=== PATIENT | female | born 1995 | race Caucasian/White ===

== ENCOUNTER → 2017-05-22 09:51 | Outpatient (CLI) | payer BC, SELFPAY ==
--- NOTE | 2017-05-22 09:55 | US_ITS ---
STUDY: THYROID ULTRASOUND REASON FOR EXAM: Female, 21 years old. Thyroid nodule. TECHNIQUE: Ultrasound evaluation of the thyroid was performed with real-time and static toure-scale imaging. COMPARISON: None. FINDINGS: RIGHT LOBE: The right lobe of the thyroid gland is mildly enlarged and measures 5.1 cm x 1.4 cm x 1.4 cm. There is a homogeneous echotexture. Multiple small cysts are seen throughout the right lobe. The largest measures 5 mm x 3 mm x 3 mm. LEFT LOBE: The left lobe of the thyroid gland measures 4.6 cm x 1.2 cm x 1.4 cm. There is a homogeneous echotexture. Multiple cysts are seen in the left lobe. The largest measures 3 mm x 4 mm x 2 mm. This is in the upper pole. ISTHMUS: The isthmus measures 2.0 mm. The regional lymph nodes are normal. US/Thyroid IMPRESSION: Slightly enlarged right lobe of the thyroid. Multiple small cysts seen in both lobes. Electronically Signed: Jah Heller MD at 13:13 EST Tel [phone], Service support ,
[2017-05-22 12:10] LABS: Absolute Lymphocyte Count 1.64 X10^3/ul (0.83-4.51); Absolute Neutrophil Count 2.6 X10^3/uL (2.0-7.7); Basophil# 0.06 X10^3/uL; Basophil% 1.2 % (0-1); Eosinophil# 0.34 X10^3/uL; Eosinophils% 6.7 % (0-5); Hematocrit 42.2 % (37-47); Hemoglobin 14.4 g/dl (12.0-15.0); Lymphocyte # 1.64 X10^3/ul (4.0); Lymphocyte % 32.2 % (19-41); Mean Corp Hgb Conc 34.1 g/gl (32-36); Mean Corpuscular Hgb 30.1 pg (27.0-32.0); Mean Corpuscular Volume 88.3 fL (81-99); Mean Platelet Vol. 10.4 fl (6.2-12.0); Monocyte# 0.44 X10^3/uL; Monocyte% 8.6 % (0-10); Neutrophil # 2.61 X10^3/uL (2.7-7.7); Neutrophil % 51.1 % (47-70); Platelet Count 264 K/mm3 (150-450); RBC Distribution Width CV 12.5 % (11.6-14.6); RBC Distribution Width SD 40.1 fl (35.1-43.9); Red Blood Count 4.78 M/mm3 (4.2-5.4); White Blood Count 5.1 K/mm3 (4.4-11.0)
[2017-05-22 12:25] LABS: POSITIVE COUNT NO; POSITIVE DIFFERENTIAL NO; POSITIVE MORPHOLOGY NO
[2017-05-22 12:34] LABS: ALB/GLOB Ratio 1.1 RATIO (0.9-2.4); AST(SGOT) 17 U/L (15-37); Alanine Aminotransfer ALT/SGPT 31 U/L (13-56); Albumin, Serum 4.1 g/dL (3.2-5.0); Alkaline Phosphatase 51 U/L (45-117); Anion Gap 4 (5-15); BUN 8 mg/dL (7-18); BUN/Creat Ratio 9.6 RATIO (10-20); Calcium,Total 9.5 mg/dL (8.5-10.1); Chloride 107 mmol/L (98-107); Creatinine, Serum 0.84 mg/dL (0.55-1.02); EST Glomerular Filtration Rate 93 mL/min (>60); Est Glom Filt Rate - Afr Amer 112 mL/min (>60); Globulin 3.9 g/dL (2.2-4.2); Glucose 83 mg/dL (74-106); Sodium Level 139 mmol/L (136-145); Thyroid Stim Hormone (TSH) 1.58 uIU/mL (0.358-3.74)
== END ==
PROVIDERS: Family Provider Internal Medicine; PCP Internal Medicine; Visit Provider Nurse Practitioner Family
DX: E04.1 Nontoxic single thyroid nodule (principal)
CPT/HCPCS: 36415; 76536; 80053; 84439; 84443; 85025

== ENCOUNTER → 2017-12-05 13:30 | Outpatient (CLI) | payer BC, SELFPAY | PROVIDERS: Family Provider Internal Medicine; PCP Internal Medicine; Visit Provider Physician Assistant | DX: J02.9 Acute pharyngitis, unspecified (principal) | CPT/HCPCS: 87081 ==

== ENCOUNTER 2017-12-30 15:38 | Emergency (ER) | payer BC, SELFPAY ==
[2017-12-30 15:39] VITALS: BP 117/73; PULSE 67; RESP 16; TEMP 36.4; O2SAT 100; BMI 22.8
--- NOTE | 2017-12-30 16:00 | EKG12_ITS ---
Test Reason : SYNCOPE Blood Pressure : / mmHG Vent. Rate : 066 BPM Atrial Rate : 066 BPM P-R Int : 114 ms QRS Dur : 082 ms QT Int : 404 ms P-R-T Axes : 033 074 038 degrees QTc Int : 423 ms Normal sinus rhythm Normal ECG Confirmed by DONITA RAIN MD ([id number]), desk editor KAREN WELDON ([id number]) on 01/01/2018 2:40:42 PM Referred By: MURIEL Confirmed By:DONITA RAIN MD
--- NOTE | 2017-12-30 16:03 | ED.DCSUM_ITS ---
- ER Visit Summary Date of Service: 12/30/17 Chief Complaint: Syncope History of Present Illness: The patient is a 22 F who was sitting up in chair today eating her lunch when she started to feel very warm and lightheaded. She tried to get up to walk to the restroom and passed out, falling to the floor. P atient denies any injury. Currently she has no complaints. She denies palpitations. She has not been ill recently. Family does state she has had extra stress over the past week or so. Physical Examination: Vital signs are unremarkable. Patient sitting upright in bed no acute distress. Head neck examination is normal. Heart is regular rate and rhythm. Lung sounds are clear. Abdomen is soft nontender. Neuro exam is normal. Test Results: EKG is sinus at 66 with no sign of acute ischemia. CBC and chemistry studies unremarkable. test negative. Emergency Department Course and Treatment: Patient is given a liter of IV fluids. Repeat evaluation she is resting comfortably. She has had no concern ing arrhythmias on her media monitor. She be discharged home with family at this time. Treatment Plan: [] Disposition: Discharge Impression: Vasovagal syncope This note was generated with [employer] dictation software. It may contain incorrect words, spelling, and punctuation that were not noted in review of the chart prior to signing ED Disposition - Plan for ED Patient: Chief Complaint: Syncope Referrals: Vanessa Hernandez MD [Primary Care Provider] -
[2017-12-30] MEDS: 0.9% Normal Saline 1,000 ML 1000 ML IV (16:18)
[2017-12-30 16:25] LABS: Absolute Lymphocyte Count 1.71 X10^3/ul (0.83-4.51); Absolute Neutrophil Count 7.3 X10^3/uL (2.0-7.7); Basophil# 0.04 X10^3/uL; Basophil% 0.4 % (0-1); Eosinophil# 0.12 X10^3/uL; Eosinophils% 1.2 % (0-5); Hematocrit 42.3 % (37-47); Hemoglobin 13.9 g/dl (12.0-15.0); Lymphocyte # 1.71 X10^3/ul (4.0); Lymphocyte % 17.4 % (19-41); Mean Corp Hgb Conc 32.9 g/gl (32-36); Mean Corpuscular Hgb 30.2 pg (27.0-32.0); Mean Corpuscular Volume 91.8 fL (81-99); Mean Platelet Vol. 9.8 fl (6.2-12.0); Monocyte# 0.65 X10^3/uL; Monocyte% 6.6 % (0-10); Neutrophil # 7.31 X10^3/uL (2.7-7.7); Neutrophil % 74.2 % (47-70); Platelet Count 295 K/mm3 (150-450); RBC Distribution Width CV 13.4 % (11.6-14.6); RBC Distribution Width SD 44.5 fl (35.1-43.9); Red Blood Count 4.61 M/mm3 (4.2-5.4); White Blood Count 9.9 K/mm3 (4.4-11.0)
[2017-12-30 16:27] LABS: POSITIVE COUNT NO; POSITIVE DIFFERENTIAL NO; POSITIVE MORPHOLOGY NO
[2017-12-30 16:39] LABS: Anion Gap 7 (5-15); BUN 12 mg/dL (7-18); BUN/Creat Ratio 12.4 RATIO (10-20); Calcium,Total 9.5 mg/dL (8.5-10.1); Chloride 108 mmol/L (98-107); Creatinine, Serum 0.97 mg/dL (0.55-1.02); EST Glomerular Filtration Rate 78 mL/min (>60); Est Glom Filt Rate - Afr Amer 94 mL/min (>60); Estimated Creatinine Clearance 89.97 ml/min; Glucose 106 mg/dL (74-106); Potassium 3.6 mmol/L (3.5-5.1); Sodium Level 141 mmol/L (136-145)
[2017-12-30 16:46] LABS: Pregnancy, Serum, hCG Quali. NEGATIVE Negative (0-9 Nonpreg)
--- NOTE | 2017-12-30 16:57 | ED.DEP ---
ED Disposition - Plan for ED Patient: Disposition: Home or Assisted Living Chief Complaint: Syncope Instructions: ED Syncope Vasovagal Referrals: Vanessa Hernandez MD [Primary Care Provider] - 1-2 Weeks
[2017-12-30 17:00] VITALS: BP 108/73; PULSE 62; RESP 18; O2SAT 99
== END 2017-12-30 17:05 | disposition home or self-care (01) ==
PROVIDERS: Emergency Provider Emergency Medicine; Family Provider Internal Medicine; PCP Internal Medicine
DX: R55 Syncope and collapse (principal); J45.909 Unspecified asthma, uncomplicated; F32.9 Major depressive disorder, single episode, unspecified; F41.9 Anxiety disorder, unspecified; Z79.899 Other long term (current) drug therapy
CPT/HCPCS: 80048; 84703; 85025; 93005; 96360; 99285; J7030

== ENCOUNTER → 2018-01-25 15:59 | Outpatient (CLI) | payer BC, SELFPAY ==
[2018-01-25 17:50] LABS: Absolute Lymphocyte Count 1.73 X10^3/ul (0.83-4.51); Basophil# 0.03 X10^3/uL; Basophil% 0.3 % (0-1); Eosinophil# 0.31 X10^3/uL; Eosinophils% 3.4 % (0-5); Hematocrit 43.9 % (37-47); Hemoglobin 14.1 g/dl (12.0-15.0); Lymphocyte # 1.73 X10^3/ul (4.0); Lymphocyte % 19.2 % (19-41); Mean Corp Hgb Conc 32.1 g/gl (32-36); Mean Corpuscular Hgb 29.9 pg (27.0-32.0); Mean Corpuscular Volume 93.2 fL (81-99); Monocyte# 0.91 X10^3/uL; Monocyte% 10.1 % (0-10); Neutrophil # 6.02 X10^3/uL (2.7-7.7); Platelet Count 339 K/mm3 (150-450); RBC Distribution Width CV 13.5 % (11.6-14.6); RBC Distribution Width SD 45.9 fl (35.1-43.9); Red Blood Count 4.71 M/mm3 (4.2-5.4)
[2018-01-25 17:51] LABS: POSITIVE COUNT NO; POSITIVE DIFFERENTIAL NO; POSITIVE MORPHOLOGY NO
[2018-01-25 18:25] LABS: Internal QC Validated? YES +Cl - CLEAR BKGD; Monotest Negative (Negative); Record Kit Lot#, Mono 13171517
== END ==
PROVIDERS: Family Provider Internal Medicine; PCP Internal Medicine; Referring Provider Nurse Practitioner Family; Visit Provider Nurse Practitioner Family
DX: J02.9 Acute pharyngitis, unspecified (principal)
CPT/HCPCS: 36415; 85025; 86308

== ENCOUNTER → 2018-01-28 10:02 | Outpatient (CLI) | payer BC, SELFPAY | PROVIDERS: Family Provider Internal Medicine; PCP Internal Medicine; Referring Provider Nurse Practitioner Family; Visit Provider Nurse Practitioner Family | DX: J02.9 Acute pharyngitis, unspecified (principal) | CPT/HCPCS: 87070 ==

== ENCOUNTER → 2018-02-04 16:20 | Outpatient (CLI) | payer BC, SELFPAY ==
[2018-02-07 12:21] LABS: EBV Acute VCA IgM < 36.0 U/mL (0.0-35.9); EBV Early Antigen IgG <9.0 U/mL (0.0-8.9); EBV-VCA IgG 67.8 U/mL (0.0-17.9)
== END ==
PROVIDERS: Family Provider Internal Medicine; PCP Internal Medicine; Referring Provider Otolaryngology Otolaryngology/Facial Plastic Surgery; Visit Provider Otolaryngology Otolaryngology/Facial Plastic Surgery
DX: J02.9 Acute pharyngitis, unspecified (principal); R53.83 Other fatigue
CPT/HCPCS: 36415; 86663; 86664; 86665; 87070; 87077

== ENCOUNTER → 2018-05-24 16:28 | Outpatient (CLI) | payer BC, SELFPAY ==
[2018-05-24 13:10] VITALS: BMI 24.3
[2018-05-24 19:00] LABS: Chlamydia Trachomatis by PCR Negative (Negative); Neisserai gonorrhoeae by PCR Negative (Negative); Probe Check PASS; Sample Adequacy Control PASS; Specimen Processing Control PASS
== END ==
LOC: LABSPEC 16:29
PROVIDERS: Family Provider Internal Medicine; PCP Internal Medicine; Referring Provider Nurse Practitioner Women's Health; Visit Provider Nurse Practitioner Women's Health
DX: N89.8 Other specified noninflammatory disorders of vagina (principal); Z11.3 Encounter for screening for infections with a predominantly sexual mode of transmission
CPT/HCPCS: 87070; 87077; 87106; 87205; 87491; 87591

== ENCOUNTER → 2018-07-15 16:19 | Outpatient (CLI) | payer BC, SELFPAY ==
[2018-07-15 16:08] VITALS: BMI 24.1
--- NOTE | 2018-07-15 16:24 | RAD_ITS ---
STUDY: X-RAY - RIGHT ANKLE REASON FOR EXAM: Female, 23 years old. Injury and pain TECHNIQUE: 3 view(s) of the ankle. COMPARISON: None. FINDINGS: Normal visualized distal tibia and fibula. Normal medial and lateral malleoli. Normal tibiotalar articulation and ankle mortise. Normal visualized talus and calcaneus. The visualized subtalar, talonavicular, calcaneocuboid and tarsal articulations are normal. The soft tissue structures are unremarkable. RAD/Ankle min 3 Views IMPRESSION: No acute osseous injury is evident. Electronically Signed: Óscar Burdick MD at 16:42 EDT Tel , Service support ,
--- NOTE | 2018-07-15 16:24 | RAD_ITS ---
STUDY: X-RAY - RIGHT FOOT CLINICAL: Female, 23 years old. Injury and pain TECHNIQUE: 3 view(s) of the foot. COMPARISON: None. FINDINGS: Normal talus, calcaneus, and tarsal bones. Normal visualized subtalar, talonavicular, calcaneocuboid, tarsal and tarsometatarsal articulations. Normal metatarsi. Normal metatarsophalangeal joint of the great toe. Normal tibial and fibular sesamoid bones. Normal interphalangeal joint of the great toe. Normal phalanges of the great toe. Normal second through fifth metatarsophalangeal joints. Normal interphalangeal joints and phalanges of the lesser toes. The soft tissue structures are unremarkable. RAD/Foot min 3 Views IMPRESSION: No acute osseous injury is evident. Electronically Signed: Óscar Burdick MD at 16:44 EDT Tel , Service support ,
== END ==
LOC: MTRAD 16:22
PROVIDERS: Family Provider Internal Medicine; PCP Internal Medicine; Referring Provider Physician Assistant; Visit Provider Physician Assistant
DX: S99.921A Unspecified injury of right foot, initial encounter (principal); S99.911A Unspecified injury of right ankle, initial encounter; X58.XXXA Exposure to other specified factors, initial encounter; Y93.9 Activity, unspecified; Y92.9 Unspecified place or not applicable; Y99.9 Unspecified external cause status
CPT/HCPCS: 73610; 73630

== ENCOUNTER → 2018-09-25 | Outpatient (CLI) | payer BC, SELFPAY ==
[2018-07-15 16:08] VITALS: BMI 24.1
--- NOTE | 2018-09-25 09:53 | US_ITS ---
STUDY: THYROID ULTRASOUND REASON FOR EXAM: Female, 23 years old. TECHNIQUE: Ultrasound evaluation of the thyroid was performed with real-time and static toure-scale imaging. COMPARISON: May 22, 2017 FINDINGS: RIGHT LOBE: The right lobe of the thyroid gland measures 4.6 x 1.4 x 1.3 cm with homogeneous texture. 2 tiny cysts present in the right lobe one measures 0.4 x 0.2cm and the other one measures 0.5 x 0.3cm not clinically significant. LEFT LOBE: The left lobe of the thyroid gland measures 4.5 x 1.1 x 1.3 cm or soft tissues homogeneous in appearance no evidence of any nodules or masses. The previously described tiny cysts in the left lobe are no longer detected ISTHMUS: The isthmus measures 0.2cm. ( . The regional lymph nodes are normal. US/Thyroid IMPRESSION: Normal thyroid except for tiny small cysts in the right. The tiny cysts that were seen before in the left lobe are no longer identified. Electronically Signed: Cheyenne Tamez, at 13:44 EDT Tel , Service support ,
== END | disposition home or self-care (01) ==
LOC: US 09:52
PROVIDERS: Family Provider Internal Medicine; PCP Internal Medicine; Referring Provider Internal Medicine; Visit Provider Internal Medicine
DX: E04.1 Nontoxic single thyroid nodule (principal)
CPT/HCPCS: 76536

== ENCOUNTER → 2019-01-16 12:06 | Outpatient (CLI) | payer BC, SELFPAY ==
[2018-12-02 12:47] VITALS: BMI 24.1
[2019-01-16 13:52] LABS: Internal QC Validated? YES +Cl - CLEAR BKGD; Pregnancy, Urine Negative Negative
== END ==
PROVIDERS: Family Provider Internal Medicine; PCP Internal Medicine; Referring Provider Physician Assistant Medical; Visit Provider Physician Assistant Medical
DX: L70.0 Acne vulgaris (principal); Z79.899 Other long term (current) drug therapy
CPT/HCPCS: 81025

== ENCOUNTER → 2019-02-21 13:22 | Outpatient (CLI) | payer BC, SELFPAY ==
[2018-12-02 12:47] VITALS: BMI 24.1
[2019-02-21 14:24] LABS: Internal QC Validated? YES +Cl - CLEAR BKGD
[2019-02-21 14:27] LABS: Pregnancy, Urine Negative Negative
== END ==
PROVIDERS: Family Provider Internal Medicine; PCP Internal Medicine; Referring Provider Physician Assistant Medical; Visit Provider Physician Assistant Medical
DX: L70.0 Acne vulgaris (principal); Z79.899 Other long term (current) drug therapy
CPT/HCPCS: 81025

== ENCOUNTER → 2019-03-27 | Outpatient (CLI) | payer BC, SELFPAY ==
[2019-03-27 14:11] VITALS: BMI 24.1
== END | disposition home or self-care (01) ==
LOC: LABSPEC 15:10
PROVIDERS: Family Provider Internal Medicine; PCP Internal Medicine; Referring Provider Obstetrics & Gynecology; Visit Provider Obstetrics & Gynecology
DX: N39.0 Urinary tract infection, site not specified (principal)
CPT/HCPCS: 87086; 87088

== ENCOUNTER → 2019-04-10 09:27 | Outpatient (CLI) | payer BC, SELFPAY ==
[2019-03-27 14:11] VITALS: BMI 24.1
[2019-04-10 12:19] LABS: Internal QC Validated? YES +Cl - CLEAR BKGD; Pregnancy, Urine Negative Negative
[2019-04-10 12:38] LABS: Cholesterol 185 mg/dL (200); High Density Lipoprotein 67 mg/dL; Triglycerides 103 mg/dL; Very Low Density Lipoprotein 21 mg/dL (5-40)
== END ==
PROVIDERS: Family Provider Internal Medicine; PCP Internal Medicine; Referring Provider Physician Assistant Medical; Visit Provider Physician Assistant Medical
DX: L70.0 Acne vulgaris (principal); Z79.899 Other long term (current) drug therapy
CPT/HCPCS: 36415; 80061; 81025

== ENCOUNTER → 2019-05-22 14:41 | Outpatient (CLI) | payer BC, SELFPAY ==
[2019-03-27 14:11] VITALS: BMI 24.1
[2019-05-22 15:46] LABS: Internal QC Validated? YES +Cl - CLEAR BKGD; Pregnancy, Urine Negative Negative
== END ==
PROVIDERS: PCP Internal Medicine; Referring Provider Physician Assistant Medical; Visit Provider Physician Assistant Medical
DX: L70.0 Acne vulgaris (principal); Z79.899 Other long term (current) drug therapy
CPT/HCPCS: 81025

== ENCOUNTER → 2019-05-27 | Outpatient (CLI) | payer BC, SELFPAY ==
[2019-05-27 09:30] VITALS: BMI 24.1
[2019-05-27 18:36] LABS: Chlamydia Trachomatis by PCR Negative (Negative); Neisserai gonorrhoeae by PCR Negative (Negative); Probe Check PASS; Sample Adequacy Control PASS; Specimen Processing Control PASS
[2019-05-30 01:14] LABS: HPV Reflexed? NOT INDICATED
== END | disposition home or self-care (01) ==
LOC: LABSPEC 16:11
PROVIDERS: PCP Internal Medicine; Referring Provider Nurse Practitioner Women's Health; Visit Provider Nurse Practitioner Women's Health
DX: Z11.3 Encounter for screening for infections with a predominantly sexual mode of transmission (principal); Z12.4 Encounter for screening for malignant neoplasm of cervix
CPT/HCPCS: 87491; 87591; 88175; G0145

== ENCOUNTER → 2019-06-23 11:41 | Outpatient (CLI) | payer BC, SELFPAY ==
[2019-05-27 09:30] VITALS: BMI 24.1
[2019-06-23 16:03] LABS: Internal QC Validated? YES +Cl - CLEAR BKGD; Pregnancy, Urine Negative Negative
== END ==
PROVIDERS: PCP Internal Medicine; Referring Provider Physician Assistant Medical; Visit Provider Physician Assistant Medical
DX: L70.0 Acne vulgaris (principal); Z79.899 Other long term (current) drug therapy
CPT/HCPCS: 81025

== ENCOUNTER → 2019-07-29 10:37 | Outpatient (CLI) | payer BC, SELFPAY ==
[2019-05-27 09:30] VITALS: BMI 24.1
[2019-07-29 12:19] LABS: Internal QC Validated? YES +Cl - CLEAR BKGD
[2019-07-29 12:22] LABS: Pregnancy, Urine Negative Negative
== END ==
PROVIDERS: PCP Internal Medicine; Referring Provider Physician Assistant Medical; Visit Provider Physician Assistant Medical
DX: L70.0 Acne vulgaris (principal); Z79.899 Other long term (current) drug therapy
CPT/HCPCS: 81025

== ENCOUNTER → 2019-09-11 15:01 | Outpatient (CLI) | payer BC, SELFPAY ==
[2019-05-27 09:30] VITALS: BMI 24.1
[2019-09-11 17:47] LABS: Internal QC Validated? YES +Cl - CLEAR BKGD; Pregnancy, Urine Negative Negative
== END ==
PROVIDERS: PCP Internal Medicine; Referring Provider Physician Assistant Medical; Visit Provider Physician Assistant Medical
DX: L70.0 Acne vulgaris (principal); Z79.899 Other long term (current) drug therapy
CPT/HCPCS: 81025

== ENCOUNTER → 2019-10-09 08:12 | Outpatient (CLI) | payer BC, SELFPAY ==
[2019-05-27 09:30] VITALS: BMI 24.1
[2019-10-09 10:05] LABS: Internal QC Validated? YES +Cl - CLEAR BKGD; Pregnancy, Urine Negative Negative
== END ==
PROVIDERS: PCP Internal Medicine; Referring Provider Physician Assistant Medical; Visit Provider Physician Assistant Medical
DX: L70.0 Acne vulgaris (principal); Z79.899 Other long term (current) drug therapy
CPT/HCPCS: 81025

== ENCOUNTER → 2020-06-28 15:33 | Outpatient (CLI) | payer OTHER, SELFPAY ==
[2020-06-28 15:09] VITALS: BMI 23.5
[2020-06-28 17:33] LABS: HIV - WCH Non-Reactive (Nonreactive)
[2020-06-29 10:07] LABS: Syphilis Antibodies Non-reactive
[2020-06-30 20:08] LABS: HCV Quant. RNA PCR HCV Not Detected IU/mL (.)
[2020-06-30 20:37] LABS: HSV 2 IgG < 0.91 index (0.00-0.90)
[2020-07-01 03:07] LABS: Chlamydia By Nucleic Acid AMP Negative (Negative)
[2020-07-01 09:03] LABS: Gonococcus By Nucleic Acid AMP Negative (Negative)
== END ==
PROVIDERS: PCP Internal Medicine; Referring Provider Nurse Practitioner Women's Health; Visit Provider Nurse Practitioner Women's Health
DX: Z11.3 Encounter for screening for infections with a predominantly sexual mode of transmission (principal)
CPT/HCPCS: 36415; 86695; 86696; 86703; 86780; 87491; 87522; 87591

== ENCOUNTER → 2021-03-22 | Outpatient (CLI) | payer OTHER, SELFPAY | END | disposition home or self-care (01) | LOC: LABSPEC 15:23 | PROVIDERS: PCP Internal Medicine; Visit Provider Otolaryngology Otolaryngology/Facial Plastic Surgery | DX: J32.8 Other chronic sinusitis (principal) | CPT/HCPCS: 87070; 87077 ==

== ENCOUNTER → 2021-08-31 | Outpatient (CLI) | payer BC, SELFPAY ==
[2021-09-01 22:07] LABS: Chlamydia By Nucleic Acid AMP Negative (Negative)
[2021-09-02 08:49] LABS: Gonococcus By Nucleic Acid AMP Negative (Negative)
== END | disposition home or self-care (01) ==
LOC: LABSPEC 12:20
PROVIDERS: PCP Internal Medicine; Visit Provider Nurse Practitioner Women's Health
DX: Z11.3 Encounter for screening for infections with a predominantly sexual mode of transmission (principal)
CPT/HCPCS: 87491; 87591

== ENCOUNTER → 2022-10-27 | Outpatient (CLI) | payer BC, SELFPAY ==
[2022-10-27 15:36] LABS: HIV - WCH Non-Reactive (Nonreactive); Hepatitis C Antibody Non-Reactive (Nonreactive); Syphilis Antibodies Non-reactive
[2022-10-30 22:07] LABS: Chlamydia By Nucleic Acid AMP Positive (Negative); Gonococcus By Nucleic Acid AMP Negative (Negative)
[2022-11-02 20:33] LABS: HPV Reflexed? NOT INDICATED
== END | disposition home or self-care (01) ==
PROVIDERS: PCP Internal Medicine; Referring Provider Advanced Practice Midwife; Visit Provider Advanced Practice Midwife
DX: Z11.3 Encounter for screening for infections with a predominantly sexual mode of transmission (principal); Z12.4 Encounter for screening for malignant neoplasm of cervix
CPT/HCPCS: 36415; 86703; 86780; 86803; 87070; 87205; 87491; 87591; 88175; G0145

== ENCOUNTER → 2023-02-20 | Outpatient (CLI) | payer BC, SELFPAY ==
[2023-02-25 07:07] LABS: Chlamydia By Nucleic Acid AMP Negative (Negative); Gonococcus By Nucleic Acid AMP Negative (Negative)
== END | disposition home or self-care (01) ==
PROVIDERS: PCP Internal Medicine; Visit Provider Obstetrics & Gynecology
DX: N89.8 Other specified noninflammatory disorders of vagina (principal); Z11.3 Encounter for screening for infections with a predominantly sexual mode of transmission
CPT/HCPCS: 87070; 87077; 87186; 87205; 87491; 87591

== ENCOUNTER → 2024-12-22 | Outpatient (CLI) | payer BC, SELFPAY ==
[2024-12-25 10:08] LABS: Chlamydia By Nucleic Acid AMP Negative (Negative); Gonococcus By Nucleic Acid AMP Negative (Negative)
== END | disposition home or self-care (01) ==
PROVIDERS: PCP Internal Medicine; Referring Provider Nurse Practitioner Women's Health; Visit Provider Nurse Practitioner Women's Health
DX: Z11.3 Encounter for screening for infections with a predominantly sexual mode of transmission (principal)
CPT/HCPCS: 87491; 87591

== ENCOUNTER 2025-01-12 08:43 | Emergency (ER) | payer BC, SELFPAY ==
[2025-01-12 08:43] VITALS: BP 122/85; PULSE 70; RESP 16; TEMP 36.9; O2SAT 100; BMI 25.2
--- NOTE | 2025-01-12 09:34 | CT_ITS ---
PROCEDURE: ABDOMEN/PELVIS W IV CONT ONLY 01/12/2025 REASON FOR EXAM: LEFT LOWER QUADRANT PAIN TECHNIQUE: Procedure Code: [id number] Modality: CT Procedure: ABDOMEN/PELVIS W IV CONT ONLY Coronal and Sagittal reconstruction series were provided. CONTRAST: Isovue-300 VOLUME: 100 mL One or more dose reduction techniques were used (e.g., Automated exposure control, adjustment of the mA and/or kV according to patient size, use of iterative reconstruction technique. RADIATION DOSE SUMMARY: CTDlvol: 7.9 mGy DLP: 276.06 mGycm COMPARISON: None FINDINGS: Lung bases: Minimal bibasilar dependent linear atelectasis. Liver: Theodore's lobe of the liver. Gallbladder: Unremarkable Spleen: Normal size. Pancreas: Normal size without evidence of mass surrounding inflammation or ductal dilation. Adrenals: Unremarkable Kidneys: 8.5 mm cyst in the lower pole of the right kidney. Bladder: Unremarkable Reproductive Organs: There is a 5.4 cm by 3.8 cm complex cystic density in the right adnexa. This may represent enlarged right ovary with multiple small cysts. Sonographic correlation recommended. Bowel: Unremarkable Appendix: Unremarkable Lymph nodes: Unremarkable. Vasculature: The abdominal aorta and IVC are normal. Peritoneum / Retroperitoneum: Unremarkable Bones: Straightening of the normal lumbar lordosis. CT/Abdomen/Pelvis W IV Cont ONLY IMPRESSION: Theodore's lobe of the liver. Complex 6 6 structure in the right adnexa as described. Sonographic correlatio n recommended. Reading Location: [place] [id number]
--- NOTE | 2025-01-12 09:40 | EDS_ITS ---
HPI History of Present Illness Chief Complaint: Abd Pain Narrative Narrative: Chief complaint and HPI: 29-year-old female with past medical history of anxiety, depression, asthma presents for evaluation of left lower quadrant/groin pain. Onset of symptoms yesterday. Does not radiate. Denies any fever, chills, shortness of breath, chest pain, nausea, vomiting, dysuria, back pain. Denies any history of kidney stones. Denies any abdominal surgeries. States at baseline she regulates between constipation and diarrhea. States her last menstrual cycle was irregular, she was supposed to start 2 weeks ago. She is sexually active. Review of systems: See HPI Medications: As listed on the chart Allergies: As listed on the chart PFSH: Per chart Vital signs: As listed on the chart. Reviewed. Physical exam: Gen: A&O x3, NAD Head: Normocephalic, atraumatic Eyes: No sclera icterus, conjunctiva clear ENT: Moist mucous membranes Neck: Trachea midline CV: RRR, no murmurs Resp: Lungs CTA BL, no w/r/c GI: Abd soft, non-distended, minimally tender in the left lower quadrant, no r /r/g Musc: Full ROM, no deformity Skin: Warm, dry Neuro: Alert, oriented, grossly intact, sensation intact Psych: Cooperative, appropriate mood and affect [facility] Medical History DAPHNEY (generalized anxiety disorder) Major depression Asthma Cyst of thyroid Home Medications ?Medication ?Instructions ?Recorded ?Last Taken ?Type spironolactone 50 mg tablet 50 mg PO DAILY 02/20/23 Un known History drospirenone 3 mg-ethinyl 1 tab PO QDAY #84 tabs 12/22 Unknown Rx estradiol 0.02 mg tablet (Vestura (28)) fluoxetine 20 mg capsule 20 mg PO DAILY #30 caps 12/02 08/24 Unknown Rx metronidazole 500 mg tablet 500 mg PO BID 7 days #14 t abs 01/07/25 Unknown Rx ipratropium bromide 21 mcg (0.03 2 spray intranasal TI D PRN PRN 01/12/25 Unknown History %) nasal spray congestion Allergy/AdvReac Type Severity Reaction Status Date / Time No Known Allergies Allergy Verified 01/12/25 08:43 Family History Mother Thyroid disorder Depression Anxiety Grandmother Colon cancer
--- NOTE | 2025-01-12 09:40 | EX.ED.DYSGE1 ---
HPI History of Present Illness Chief Complaint: Abd Pain Narrative Narrative: Chief complaint and HPI: 29-year-old female with past medical history of anxiety, depression, asthma presents for evaluation of left lower quadrant/groin pain. Onset of symptoms yesterday. Does not radiate. Denies any fever, chills, shortness of breath, chest pain, nausea, vomiting, dysuria, back pain. Denies any history of kidney stones. Denies any abdominal surgeries. States at baseline she regulates between constipation and diarrhea. States her last menstrual cycle was irregular, she was supposed to start 2 weeks ago. She is sexually active. Review of systems: See HPI Medications: As listed on the chart Allergies: As listed on the chart PFSH: Per chart Vital signs: As listed on the chart. Reviewed. Physical exam: Gen: A&O x3, NAD Head: Normocephalic, atraumatic Eyes: No sclera icterus, conjunctiva clear ENT: Moist mucous membranes Neck: Trachea midline CV: RRR, no murmurs Resp: Lungs CTA BL, no w/r/c GI: Abd soft, non-distended, minimally tender in the left lower quadrant, no r/r/g Musc: Full ROM, no deformity Skin: Warm, dry Neuro: Alert, oriented, grossly intact, sensation intact Psych: Cooperative, appropriate mood and affect [facility] Medical History DAPHNEY (generalized anxiety disorder) Major depression Asthma Cyst of thyroid Home Medications ?Medication ?Instructions ?Recorded ?Last Taken ?Type spironolactone 50 mg tablet 50 mg PO DAILY 02/20/23 Unknown History drospirenone 3 mg-ethinyl 1 tab PO QDAY #84 tabs 12/22/24 Unknown Rx estradiol 0.02 mg tablet (Vestura (28)) fluoxetine 20 mg capsule 20 mg PO DAILY #30 caps 12/25/24 Unknown Rx metronidazole 500 mg tablet 500 mg PO BID 7 days #14 tabs 01/07/25 Unknown Rx ipratropium bromide 21 mcg (0.03 2 spray intranasal TID PRN PRN 01/12/25 Unknown History %) nasal spray congestion Allergy/AdvReac Type Severity Reaction Status Date / Time No Known Allergies Allergy Verified 01/12/25 08:43 Family History Mother Thyroid disorder Depression Anxiety Grandmother Colon cancer Surgical History No significant past surgical history Social History adopted: No household members: family housing: house current occupational status: employed current occupation: [employer] Smoking Status: Never smoker alcohol intake: current details: socially substance use type: does not use caffeine: Yes what type of physical activity do you participate in: none and walking seatbelt use: always do you feel safe at home: Yes EXAM Physical Exam Const Vital Signs: 01/12/25 08:43 01/12/25 10:43 01/12/25 12:00 Temperature 98.4 F Temperature Source Oral Pulse Rate 70 67 48 L Respiratory Rate 16 16 16 Blood Pressure 122/85 H 117/60 Blood Pressure Mean 97 79 Pulse Ox 100 99 100 Oxygen Delivery Method Room Air Room Air Room Air 01/12/25 12:59 Temperature Temperature Source Pulse Rate 55 L Respiratory Rate 16 Blood Pressure 117/82 H Blood Pressure Mean 93 Pulse Ox 99 Oxygen Delivery Method MDM MDM MDM Narrative Medical decision making narrative: 29-year-old female with past medical history of anxiety, depression, asthma presents for evaluation of left lower quadrant/groin pain. Onset of symptoms yesterday. Does not radiate. Denies any fever, chills, shortness of breath, chest pain, nausea, vomiting, dysuria, back pain. Differential diagnosis includes but is not limited to viral gastroenteritis, diverticulitis, urolithiasis, , UTI. NS bolus, morphine, Zofran ordered for symptoms. Abdominal pain workup ordered including CT abdomen pelvis. CBC without leukocytosis or anemia. CMP unremarkable. Lipase unremarkable. UA negative for UTI and . CT abdomen pelvis shows an accessory lobe of the liver. She has a 5.4 cm x 3.8 cm complex cyst density in the right adnexa. May represent enlarged right ovary with multiple small cysts. No comment on the left ovary. Patient's pain is located on the left. On reevaluation, patient still endorsing left lower abdominal pain. Will get transvaginal ultrasound to assess for pelvic pathology. Transvaginal ultrasound did not visualize the left ovary. The right ovary shows no free fluid. Normal flow. No visible adnexal mass or cyst. Uterus shows an endometrial measuring 9 mm. No fibroid or mass. On reevaluation, patient's pain has improved with Toradol although still present. Given her left ovary was not visualized, I did consult her CAST ASSOCIATE and spoke to Dr. Cobb. She reviewed the imaging. Agrees no clear etiology for the pain at this time. Patient follow-up in her office. Patient stable to discharge home. Motrin and Tylenol as needed for pain. Return precautions explained. She confirmed understanding of the plan. Patient will discharge home. Impression: 1. Left lower quadrant abdominal pain Lab Data Labs: Laboratory Results - last 24 hr 01/12/25 09:40 WBC 5.2 RBC 4.53 Hgb 14.3 Hct 40.9 MCV 90.3 MCH 31.6 MCHC 35.0 RDW Std Deviation 40.0 RDW Coeff of Nile 12.2 Plt Count 294 MPV 10.4 Immature Gran % (Auto) 0.400 Neut % (Auto) 65.0 Lymph % (Auto) 21.6 [place] % (Auto) 9.7 Eos % (Auto) 2.5 Baso % (Auto) 0.8 Absolute Neuts (auto) 3.4 Absolute Lymphs (auto) 1.11 Nucleated RBC % 0 Sodium 138 Potassium 4.2 Chloride 105 Carbon Dioxide 23.8 Anion Gap 9 BUN 9 Creatinine 0.86 Estim Creat Clear Calc 95.55 Est GFR (MDRD) Non-Af 95 BUN/Creatinine Ratio 10.9 Glucose 93 Calcium 9.9 Total Bilirubin 0.51 AST 20 ALT 16 Alkaline Phosphatase 33 L Total Protein 7.1 Albumin 4.2 Globulin 2.9 Albumin/Globulin Ratio 1.5 Lipase 41 Urine Color Yellow Urine Clarity Clear Urine pH 6.5 Ur Specific Young 1.010 Urine Protein Negative Urine Glucose (UA) Normal Urine Ketones Negative Urine Occult Blood 10 H Urine Nitrite Negative Urine Bilirubin Negative Urine Urobilinogen Normal Ur Leukocyte Esterase Negative Urine RBC 0 SEEN Urine WBC 0-5 SEEN Ur Squamous Epith Cells 5-10 SEEN Urine Bacteria RARE Urine Mucus 0 SEEN Urine Test Negative Radiography Diagnostic Testing: Clinical Impression(s) from Imaging Studies Abdomen/Pelvis CT 01/12/25 09:34 IMPRESSION: Theodore's lobe of the liver. Complex 6 6 structure in the right adnexa as described. Sonographic correlation recommended. Reading Location: [id number] Transvaginal US 01/12/25 11:37 IMPRESSION: The left ovary is not visible. No adnexal mass or cyst is identified. Reading Location: [facility] Discharge Plan Triage Chief Complaint: Abd Pain ED Provider: Bill Silverman Dx/Rx/DC Orders Clinical Impression: Left lower quadrant abdominal pain Instructions: ED Abdominal Pain Unkn Cause Fem Prescriptions: No Action spironolactone 50 mg tablet 50 mg PO DAILY fluoxetine 20 mg capsule 20 mg PO DAILY Qty: 30 2RF drospirenone-ethinyl estradiol [Vestura (28)] 3-0.02 mg tablet 1 tab PO QDAY Qty: 84 4RF ipratropium bromide 21 mcg (0.03 %) spray,non-aerosol 2 spray INTRANASAL TID PRN PRN (Reason: congestion) metronidazole 500 mg tablet 500 mg PO BID 7 Days Qty: 14 0RF Primary Care Provider: Gail Croft Referrals: Chely Duenas DO [Med Staff - Active Staff, Obstetrics-Gynecology (OBGYN)] - 3-5 Days Gail Croft DO [Primary Care Provider, Internal Medicine] - 3-5 Days Activity Restrictions/Additional Instructions: Follow-up with primary care physician and CAST ASSOCIATE. Return back to ED if symptoms change or worsen. Tylenol Motrin as needed for pain. Print Language: Romanian Disposition Disposition: Home, Self Care
[2025-01-12] MEDS: 0.9% Normal Saline (1000mL) 1,000 ML 999 ML IV (09:49)
[2025-01-12 10:02] LABS: Mucous, Urine 0 SEEN /hpf (<or=2+); Red Blood Cells-Urine 0 SEEN /hpf (0-5)
[2025-01-12 10:03] LABS: Hematocrit 40.9 % (37-47); Hemoglobin 14.3 g/dL (12.0-15.0); Immature Granulocytes Count 0.020 X10^3/uL (0.0-0.0); Mean Corp Hgb Conc 35.0 g/dL (32-36); Mean Corpuscular Volume 90.3 fL (81-99); Mean Platelet Vol. 10.4 fl (6.2-12.0); NRBC Flagged by Analyzer 0 % (0-5); Platelet Count 294 K/mm3 (150-450); RBC Distribution Width CV 12.2 % (11.6-14.6); RBC Distribution Width SD 40.0 fl (35.1-43.9); Red Blood Count 4.53 M/mm3 (4.2-5.4); White Blood Count 5.2 K/mm3 (4.4-11.0)
[2025-01-12 10:14] LABS: Color, Urine Yellow (Yellow); Glucose, Dipstick Normal (Normal); Ketone-Dipstick Negative (Negative); Leukocyte Esterase-Dipstick Negative /ul (Negative); Nitrite-Dipstick Negative (Negative); Occult Blood-Urine 10 /ul (Negative); Protein-Dipstick Negative (Negative); Specific Gravity, Urine 1.010 (1.002-1.030); Urine Bilirubin Dipstick Negative (Negative)
[2025-01-12 10:18] LABS: Internal QC Validated? YES +Cl - CLEAR BKGD; Pregnancy, Urine Negative Negative; Record Kit Lot#,Urine Preg 0000980607
[2025-01-12 10:22] LABS: Squamous Epithelial Cells - UA 5-10 SEEN /hpf (5-10)
[2025-01-12 10:32] LABS: AST(SGOT) 20 U/L (<=31); Alanine Aminotransfer ALT/SGPT 16 U/L (<=34); Albumin, Serum 4.2 g/dL (3.5-5.0); Alkaline Phosphatase 33 U/L (35-104); Anion Gap 9 (5-15); BUN 9 mg/dL (4-19); BUN/Creat Ratio 10.9 RATIO (10-20); Calcium,Total 9.9 mg/dL (7.6-11.0); Carbon Dioxide 23.8 mmol/L (21.0-32.0); Chloride 105 mmol/L (98-108); Estimated Creatinine Clearance 95.55 ml/min (50-250); Globulin 2.9 g/dL (2.2-4.2); Glucose 93 mg/dL (70-99); Lipase 41 U/L (13-75); Potassium 4.2 mmol/L (3.3-5.1)
[2025-01-12 10:43] VITALS: PULSE 67; RESP 16; O2SAT 99
--- NOTE | 2025-01-12 11:37 | US_ITS ---
PROCEDURE: TRANSVAGINAL NON- 01/12/2025 REASON FOR EXAM: OVARIAN CYST, ABDOMINAL PAIN TECHNIQUE: Procedure Code: USTVAG Modality: US Procedure: TRANSVAGINAL NON- COMPARISON: None FINDINGS: The uterus measures 6.4 x 4.2 x 3.4 cm. There is no uterine fibroid or mass. The uterus is retroverted. The endometrium measures 9 mm. Nabothian cysts are noted. The right ovary measures 3.6 x 2.2 x 1.9 cm. The left ovary is not visible. Normal flow is documented on the right ovary. There is no free fluid. There is no visible adnexal mass or cyst. US/Transvaginal Non- IMPRESSION: The left ovary is not visible. No adnexal mass or cyst is identified. Reading [facility]
[2025-01-12 12:00] VITALS: BP 117/60; PULSE 48; RESP 16; O2SAT 100
[2025-01-12 12:59] VITALS: BP 117/82; PULSE 55; RESP 16; O2SAT 99
[2025-01-12 14:35] VITALS: BP 116/66; PULSE 58; RESP 16; TEMP 36.6; O2SAT 99
== END 2025-01-12 14:39 | disposition home or self-care (01) ==
PROVIDERS: Emergency Provider Surgery; PCP Internal Medicine; Visit Provider Surgery
DX: R10.32 Left lower quadrant pain (principal); F41.1 Generalized anxiety disorder; Z79.899 Other long term (current) drug therapy; F32.9 Major depressive disorder, single episode, unspecified
CPT/HCPCS: 74177; 76830; 80053; 81001; 81025; 83690; 85025; 96361; 96374; 96375; 99283; Q9967; A4216; J2405

== ENCOUNTER → 2025-01-27 | Outpatient (CLI) | payer BC, SELFPAY ==
--- NOTE | 2025-01-27 13:11 | US_ITS ---
PROCEDURE: PELVIC (NON ) 01/27/2025 REASON FOR EXAM: LLQ ABD TECHNIQUE: Procedure Code: USPEL Modality: US Procedure: PELVIC (NON ) COMPARISON: None FINDINGS: Uterus measures 6.9 x 4.0 x 3.1 cm. It is in retroflexed position. No fibroids are noted. Endometrial thickness is 4 mm and is hyperechoic. Cervix is within normal limits. Right ovary measures 3 x 2 x 1.9 cm and left ovary measures 2.5 x 1.8 x 1.7 cm. There is normal bilateral symmetrical flow within bilateral ovaries. No significant free fluid within the cul-de-sac. US/Pelvic (Non ) IMPRESSION: No acute process. Reading Location: [id number]
== END | disposition home or self-care (01) ==
LOC: US 13:09
PROVIDERS: PCP Internal Medicine; Referring Provider Nurse Practitioner Family; Visit Provider Nurse Practitioner Family
DX: R10.32 Left lower quadrant pain (principal)
CPT/HCPCS: 76856